=== PATIENT | male | born 1960 | race Caucasian/White ===

== ENCOUNTER 2022-09-06 09:15 | Day surgery (SDC) | payer OTHER ==
[~2022-09-06] VITALS: Ht 177.8 cm; Wt 107.0 kg
[2022-09-06] MEDS ORDERED: fentaNYL citrate 0.05 MG/ML VIAL ONE (12:33)
[2022-09-06] MEDS ORDERED: LIDOCAINE 2% 100 MG/5 ML UJET TP ONE (12:33)
[2022-09-06] MEDS ORDERED: fentaNYL citrate 0.05 MG/ML VIAL IVP ONE (14:20)
== END 2022-09-06 13:30 | disposition home or self-care (01) ==
LOC: MDS 09:15 → MMU 09:35 → MDS 13:30
PROVIDERS: ATTEND Internal Medicine Gastroenterology
DX: Z12.11 Encounter for screening for malignant neoplasm of colon (principal); E78.00 Pure hypercholesterolemia, unspecified; I10 Essential (primary) hypertension; Z79.82 Long term (current) use of aspirin; Z79.899 Other long term (current) drug therapy; Z90.89 Acquired absence of other organs; Z98.890 Other specified postprocedural states
CPT/HCPCS: 45378; J3010